=== PATIENT | male | born 1985 | race Caucasian/White ===

== ENCOUNTER 2016-10-15 15:42 | Emergency (ER) | payer MEDICAID ==
[~2016-10-15] VITALS: Ht 172.7 cm; Wt 60.5 kg
[2016-10-15 15:43] VITALS: BP 124/70
== END 2016-10-15 17:15 | disposition home or self-care (01) ==
LOC: ED 16:23
DX: S93.611A Sprain of tarsal ligament of right foot, initial encounter (principal); M79.671 Pain in right foot; X58.XXXA Exposure to other specified factors, initial encounter; Y93.89 Activity, other specified; Y99.8 Other external cause status; Y92.89 Other specified places as the place of occurrence of the external cause

== ENCOUNTER 2017-09-20 17:36 | Emergency (ER) | payer MEDICAID ==
[~2017-09-20] VITALS: Ht 175.3 cm; Wt 60.9 kg
[2017-09-20 17:39] VITALS: BP 121/72
== END 2017-09-20 18:52 | disposition home or self-care (01) ==
LOC: ED 18:46
DX: S93.491A Sprain of other ligament of right ankle, initial encounter (principal); X58.XXXA Exposure to other specified factors, initial encounter; Y93.89 Activity, other specified; Y92.89 Other specified places as the place of occurrence of the external cause; Y99.8 Other external cause status
CPT/HCPCS: 99284

== ENCOUNTER 2018-07-07 18:51 | Emergency (ER) | payer MEDICAID ==
[~2018-07-07] VITALS: Ht 175.3 cm; Wt 60.0 kg
[2018-07-07 18:56] VITALS: BP 136/71
== END 2018-07-07 20:33 | disposition home or self-care (01) ==
LOC: ED 20:32
DX: S39.012A Strain of muscle, fascia and tendon of lower back, initial encounter (principal); X58.XXXA Exposure to other specified factors, initial encounter; Y93.89 Activity, other specified; Y92.89 Other specified places as the place of occurrence of the external cause; Y99.8 Other external cause status
CPT/HCPCS: 99281